=== PATIENT | female | born 1955 | race Caucasian/White ===

== ENCOUNTER 2017-02-26 13:00 | Inpatient (IN) | payer OTHER ==
[~2017-02-26] VITALS: Ht 165.1 cm; Wt 98.5 kg
--- NOTE | ~2017-02-26 | OR ---
PATIENT'S NAME: ANA SAUER [facility] AGE: 61 Y [address] ROOM: [place] [address] LOCATION: [facility] ADMIT DATE: 03/03/2017 OR/Procedure Report DISCHARGE DATE: FAMILY PHYSICIAN: Pernell Crowell MD ATTENDING PHYSICIAN: REN MILLER SURGEON: Ren Miller MD FABRICATION MACHINE OPERATOR: 1. Angel Mcdowell CST/FAYE. 2. Ren Jeffrey. DATE OF PROCEDURE: 03/03/2017 PRE-OP DIAGNOSIS: Degenerative joint disease left knee. POST-OP DIAGNOSIS: Degenerative joint disease left knee. OPERATION: Left total knee arthroplasty with computer navigation. ANESTHESIA: Spinal anesthesia plus adductor canal block plus periarticular local anesthesia (ropivacaine with epinephrine and Toradol). ESTIMATED BLOOD LOSS: Less than 10 mL. DRAIN: None. SPECIMEN: None. COMPLICATIONS: None. IMPLANT SYSTEM: Endosense Triathlon. Size 4 left posterior stabilized femoral component. Size 3 universal modular tibial baseplate. An 11 mm posterior stabilized size 3, X3 tibial polyethylene insert. 32 mm oval X3 patella component (triple pegged). INDICATIONS FOR SURGERY: Ana is a 61-year-old female who presents with advanced left knee degenerative joint disease and associated severely compromised activities of daily living. The patient has decided to proceed with knee replacement after having been thoroughly counseled regarding the associated risks, benefits, and limitations. We have specifically reviewed the risks and implications of infection, deep venous thrombosis, pulmonary embolism, mortality, neurovascular complications, blood transfusion (and associated potential for disease transmission or transfusion reaction), stiffness, instability, mechanical deterioration of the components (due to wear and or loosening), and the potential need for revision. We have also emphasized the importance of active involvement and compliance with post- operative physical therapy as a means of optimizing range of motion and PATIENT'S NAME: ANA SAUER [facility] AGE: 61 Y [address] ROOM: [place] [address] LOCATION: [facility] ADMIT DATE: 03/03/2017 OR/Procedure Report DISCHARGE DATE: FAMILY PHYSICIAN: Pernell Crowell MD ATTENDING PHYSICIAN: REN MILLER functional recovery. Informed consent has been granted. DESCRIPTION OF PROCEDURE: The patient was positioned supine after administration of anesthesia and prophylactic antibiotics. A well-padded pneumatic tourniquet was placed around the left proximal thigh, and the left lower extremity was prepped and draped with vigilant sterile technique. The patient's name as well as the intended operative side and procedure were confirmed with a verbal time-out involving myself, the circulating nurse, the scrub nurse, and the anesthesiologist. Examination under anesthesia demonstrated a moderate effusion. There were no active skin lesions or masses. There was no erythema. There was no abnormal warmth. Range of motion was under anesthesia was from a 10-degree flexion contracture to 125 degrees of flexion. There was no ligamentous insufficiency. The left lower extremity was elevated and exsanguinated with an Esmarch wrap, and the pneumatic tourniquet was inflated to 300mmHg. The knee was approached through a longitudinal midline incision. A medial parapatellar arthrotomy was performed and the patella was everted. Examination of the joint space demonstrated a moderate amount of benign-appearing translucent synovial fluid. The cruciate ligaments were intact. There was mild generalized non- proliferative synovitis. There was a small osteophyte at the intercondylar notch. There was full-thickness loss of articular cartilage involving 90% of the patella. There was a 2 x 4 cm osteophyte at the lateral margin of the patella. There were small osteophytes at the superior and inferior margins of the patella. There was an additional 1 cm partially mobile ossicle at the superolateral margin of the patella. There were large osteophytes at the medial and lateral margins of the femoral trochlea as well as at the medial femoral condyle. There was a 1 x 2 cm region of full-thickness articular cartilage loss at the medial aspect of the medial femoral condyle with extensive surrounding high-grade partial-thickness articular cartilage loss at the medial femoral condyle. There was a moderate-sized osteophyte at the medial tibial plateau. There was a 1.5 cm osteophyte at the medial margin of the medial tibial plateau. There was a 1 cm osteophyte at the central aspect of the lateral femoral condyle and a second 1 cm region of full-thickness articular cartilage loss at the anteromedial aspect of the lateral femoral condyle. There were mild grade 3 degenerative changes at the medial aspect of the lateral tibial plateau. There was mild inner perimeter tearing of remnant of the medial meniscus. Remnants of the menisci and cruciate ligaments were excised. The GrabInbox computer navigation femoral tracker was pinned in place at the distal aspect of the femoral trochlea. Absence of motion between the femur and the tracking PATIENT'S NAME: ANA SAUER [facility] AGE: 61 Y [address] ROOM: [address] [place] [id number] LOCATION: [facility] ADMIT DATE: 03/03/2017 OR/Procedure Report DISCHARGE DATE: FAMILY PHYSICIAN: Pernell Crowell MD ATTENDING PHYSICIAN: REN MILLER device was confirmed manually and visually. Femoral osseous landmarks were obtained in order to calibrate the computer navigation system. Landmarks included the center of rotation of the ipsilateral hip, the center-point of the distal femur, the femoral AP axis, 57 points on the medial femoral condyle articular surface, and 57 points on the lateral femoral condyle articular surface. The GrabInbox computer navigation system was subsequently utilized to position the distal femoral resection block such that the distal femoral resection was performed perfectly perpendicular to the femoral mechanical axis. The distal femoral resection was performed with a Cinema One oscillating saw. The GrabInbox computer navigation tibial tracker was pinned in place at the anterior aspect of the tibial plateau. Absence of motion between the tibia and the tracking device was confirmed manually and visually. Tibial osseous landmarks were obtained in order to calibrate the computer navigation system. Landmarks included the center-point of the tibial plateau, the AP tibial axis, 57 points on the medial tibial plateau articular surface, 57 points on the lateral tibial plateau articular surface, the medial malleolus, and the lateral malleolus. The GrabInbox computer navigation system was subsequently utilized to position the proximal tibial resection block such that the proximal tibial resection was performed perfectly perpendicular to the tibial mechanical axis. The proximal tibial resection was performed with a Endosense Precision oscillating saw. Perpendicularity of the tibial resection with respect to the tibial shaft axis was reconfirmed by inserting a spacer- block attached to an extramedullary guide magda. External rotation of the anterior and posterior femoral resections was set parallel to the epicondylar axis and carefully adjusted in order to create a rectangular flexion gap. The box resection was performed with a reciprocating saw. Anterior and posterior chamfer resections were performed with the oscillating saw. Posterior condyle osteophytes were excised with an osteotome. All other osteophytes were excised with a rongeur. Resection of all remnants of the menisci was reconfirmed. Flexion and extension gaps were confirmed to be symmetric and well balanced with a spacer-block technique. The patella resection was performed with an oscillating saw such that the composite thickness of the reconstructed patella was equivalent to the thickness of the seminole patella. Patella tracking was confirmed to be optimal. Patella tracking was optimal, and there was no need for a lateral retinacular release. All trial components were removed and all prepared osseous surfaces were thoroughly irrigated with pulsatile saline lavage and dried prior to cementing all three components in a single stage using Endosense Simplex cement containing pre-mixed tobramycin. All extruded excess cement was removed. The entire PATIENT'S NAME: ANA SAUER [facility] AGE: 61 Y [address] ROOM: [address] [address] LOCATION: [facility] ADMIT DATE: 03/03/2017 OR/Procedure Report DISCHARGE DATE: FAMILY PHYSICIAN: Pernell Crowell MD ATTENDING PHYSICIAN: REN MILLER joint space was thoroughly inspected and thoroughly irrigated with bacteriostatic pulsatile saline lavage to assure that there was no residual debris of any sort. Final range of motion was from a full extension (with no passive hyperextension) to 130 degrees of flexion. Patella tracking was reconfirmed to be optimal. There was very good anteroposterior stability at 90 degrees of flexion. There was less than 1 mm of medial lift-off to valgus stress in full extension. There was 1 mm of lateral lift-off to varus stress in full extension. The arthrotomy was closed with multiple simple and [id number] interrupted #1 Vicryl. Subcutaneous tissues were thoroughly re-irrigated with bacteriostatic pulsatile saline lavage. Subcutaneous tissues were re- approximated with simple buried interrupted #0 Vicryl sutures. The skin was closed with simple buried interrupted 2-0 Vicryl sutures followed by surgical alicia. The dressing consisted of Xeroform gauze, 4x4 gauze, ABD pads and two 6-inch Darron Wraps. There were no intra-operative complications. MD ALEX DEWEY/elizabeth /[id number] d: 03/03/17 2145 t: 03/11/17 0716, OPERATIVE SUMMARY
[2017-02-26] MEDS ORDERED: TOPROL XL 5050 MG PO (13:37)
[2017-02-26] MEDS ORDERED: CRESTOR20 MG PO (13:37)
[2017-02-26] MEDS ORDERED: OMEPRAZOLE40 MG PO (13:37)
[2017-02-26] MEDS ORDERED: ZESTORETIC 10-1 EACH PO (13:37)
[2017-02-26] MEDS ORDERED: VITAMIN C1000 MG PO (13:38)
[2017-02-26] MEDS ORDERED: ASPIRIN EC81 MG PO (13:38)
[2017-02-26] MEDS ORDERED: CALCIUM + VITA1 EACH PO (13:39)
[2017-02-26] MEDS ORDERED: ALEVE220 MG PO (13:40)
[2017-02-26] MEDS ORDERED: WOMEN'S DAILY1 EACH PO (13:40)
[2017-03-03] MEDS ORDERED: ACETAMINOPHEN500 M1 PO (06:09)
[2017-03-04] MEDS ORDERED: COLACE100 MG PO (15:35)
[2017-03-04] MEDS ORDERED: NEURONTIN300 MG PO (15:36)
[2017-03-04] MEDS ORDERED: MIRALAX17 GM PO (15:38)
[2017-03-04] MEDS ORDERED: DILAUDID 2MG(HYD2 MG PO (15:42)
[2017-03-04] MEDS ORDERED: CELEBREX200 MG PO (15:43)
[2017-03-04] MEDS ORDERED: VALIUM5 MG PO (15:45)
== END 2017-03-04 17:46 | disposition disaster alternative care site (69) | DRG 470 ==
LOC: G3N 03-03 05:05
PROVIDERS: ADMIT Orthopaedic Surgery
PROC: 0SRD0J9 Replacement of Left Knee Joint with Synthetic Substitute, Cemented, Open Approach (ICD-10-PCS; principal; 2017-03-03)
DX: M17.0 Bilateral primary osteoarthritis of knee (principal); I10 Essential (primary) hypertension; E78.1 Pure hyperglyceridemia; E66.9 Obesity, unspecified; E55.9 Vitamin D deficiency, unspecified; K21.9 Gastro-esophageal reflux disease without esophagitis; Z79.1 Long term (current) use of non-steroidal anti-inflammatories (NSAID); Z68.36 Body mass index [BMI] 36.0-36.9, adult; Z79.82 Long term (current) use of aspirin
CPT/HCPCS: C1713; C1776; J0690; J1100; J1885; J2001; J2250; J2795; J7120

== ENCOUNTER → 2017-02-27 | Outpatient (CLI) | payer OTHER ==
[~2017-02-27] MED LIST: ACETAMINOPHEN500 M1 PO; ALEVE220 MG PO; AMOXICILLIN500 M1 PO; ASPIRIN EC81 MG PO; CALCIUM + VITA1 EACH PO; CELEBREX200 MG PO; COLACE100 MG PO; CRESTOR20 MG PO; DILAUDID 2MG(HYD2 MG PO; GABAPENTIN300 MG PO; IBUPROFEN800 MG PO; MIRALAX17 GM PO; NEURONTIN300 MG PO; OMEPRAZOLE40 MG PO; TOPROL XL 5050 MG PO; VALIUM5 MG PO; VITAMIN C1000 MG PO; WOMEN'S DAILY1 EACH PO; XARELTO10 MG PO; ZESTORETIC 10-1 EACH PO
[2017-02-27 10:51] LABS: BILIRUBIN URINE NEGATIVE (NEGATIVE); BLOOD URINE NEGATIVE /UL (NEGATIVE); COLOR URINE YELLOW (YELLOW); GLUCOSE URINE NEGATIVE (NEGATIVE); KETONE URINE NEGATIVE (NEGATIVE); LEUKOCYTES URINE NEGATIVE /UL (NEGATIVE); NITRITE URINE NEGATIVE (NEGATIVE); PROTEIN URINE NEGATIVE (NEGATIVE); SPEC GRAVITY URINE 1.015 (1.003-1.035); TURBIDITY URINE CLEAR (CLEAR); UROBILINOGEN URINE NORMAL (NORMAL)
== END | disposition disaster alternative care site (69) ==
LOC: GNJRC 10:08
PROVIDERS: Orthopaedic Surgery
DX: Z01.812 Encounter for preprocedural laboratory examination (principal); M17.12 Unilateral primary osteoarthritis, left knee

== ENCOUNTER 2017-06-09 10:00 | Inpatient (IN) | payer OTHER ==
[~2017-06-09] VITALS: Ht 165.1 cm; Wt 91.9 kg
--- NOTE | ~2017-06-09 | OR ---
PATIENT'S NAME: ANA GONZALEZ [facility] AGE: 61 Y [address] ROOM: [place] [address] LOCATION: [facility] ADMIT DATE: 06/16/2017 OR/Procedure Report DISCHARGE DATE: FAMILY PHYSICIAN: LUIS FERNANDO BA PA-C ATTENDING PHYSICIAN: REN MILLER SURGEON: Ren Miller MD SADDLE STITCHER: 1. JULIAN Mcrae. 2. Angel Mcdowell CST/TENSION MACHINE OPERATOR. DATE OF PROCEDURE: 06/16/2017 PREOPERATIVE DIAGNOSIS: Primary osteoarthritis, right knee. POSTOPERATIVE DIAGNOSIS: Primary osteoarthritis, right knee. OPERATION: Right total knee arthroplasty with computer navigation. ANESTHESIA: General endotracheal anesthesia plus adductor canal block plus periarticular local anesthesia (ropivacaine with epinephrine and Toradol). ESTIMATED BLOOD LOSS: Less than 10 mL. DRAIN: None. SPECIMEN: None. COMPLICATIONS: None. IMPLANT SYSTEM: Gino Triathlon. 1. Size 4 right posterior stabilized femoral component. 2. Size 3 universal modular tibial baseplate. 3. An 11 mm posterior stabilized size 3 X3 tibial polyethylene insert. 4. A 32 mm diameter X3 patellar component. INDICATIONS FOR SURGERY: Ana Gonzalez is a 61-year-old female who presents with advanced right knee degenerative joint disease and associated severely compromised activities of daily living. The patient has decided to proceed with knee replacement after having been thoroughly counseled regarding the associated risks, benefits, and limitations. We have specifically reviewed the risks and implications of infection, deep venous thrombosis, pulmonary embolism, mortality, neurovascular complications, blood transfusion (and associated potential for disease transmission or transfusion reaction), stiffness, instability, mechanical deterioration of the components (due to wear and or loosening), and the potential need for revision. We have also emphasized the importance of active involvement and compliance with post- operative physical therapy as a means of optimizing range of motion and PATIENT'S NAME: ANA GONZALEZ [facility] AGE: 61 Y [address] ROOM: [place] [address] LOCATION: [facility] ADMIT DATE: 06/16/2017 OR/Procedure Report DISCHARGE DATE: FAMILY PHYSICIAN: LUIS FERNANDO BA PA-C ATTENDING PHYSICIAN: REN MILLER functional recovery. Informed consent has been granted. DESCRIPTION OF PROCEDURE: The patient was positioned supine after administration of anesthesia and prophylactic antibiotics. A well-padded pneumatic tourniquet was placed around the right proximal thigh, and the right lower extremity was prepped and draped with vigilant sterile technique. The patient's name as well as the intended operative side and procedure were confirmed with a verbal time-out involving myself, the circulating nurse, the scrub nurse, and the anesthesiologist. Examination under anesthesia demonstrated no active skin lesions or masses. There were well-healed medial and lateral arthroscopy portal scars. There was no erythema. There was no abnormal warmth. There was a moderate effusion. Range of motion under anesthesia was from a 6-degree flexion contracture to 125 degrees of flexion. There was no ligamentous insufficiency. The right lower extremity was elevated and exsanguinated with an Esmarch wrap, and the pneumatic tourniquet was inflated to 300mmHg. The knee was approached through a longitudinal midline incision. A medial parapatellar arthrotomy was performed and the patella was everted. Examination of the joint space demonstrated a large amount of benign-appearing translucent orange-colored synovial fluid. There were no loose bodies. Cruciate ligaments were intact. There were small osteophytes at the intercondylar notch. There were large osteophytes around the circumference of the patella as well as the medial and lateral margins of the femoral trochlea. There were intermixed grade 3 and grade 4 degenerative changes across the equator of the patella. There was full-thickness loss of articular cartilage involving over 50% of the central and medial portions of the femoral trochlea. There was full-thickness loss of articular cartilage involving 90% of the medial femoral condyle. There was a large osteophyte at the medial femoral condyle. There was a small osteophyte at the medial tibial plateau. There was a small osteophyte at the lateral femoral condyle. There was a very small osteophyte at the lateral tibial plateau. There was a 3 x 10 mm region of full-thickness articular cartilage loss at the central aspect of the lateral tibial plateau. There were grade 2 degenerative changes at the lateral femoral condyle. The medial meniscus was truncated. There was mild inner perimeter tearing at the remnant of the medial meniscus. There was mild inner perimeter tearing at the lateral meniscus, but the majority of the lateral meniscus was intact. Remnants of the menisci and cruciate ligaments were excised. The Gino ASM computer navigation femoral tracker was pinned in place at the distal aspect of the femoral trochlea. Absence of motion between the femur and the tracking device was confirmed manually and visually. Femoral osseous landmarks were obtained in order to calibrate the computer navigation system. Landmarks PATIENT'S NAME: ANA GONZALEZ [facility] AGE: 61 Y [address] ROOM: [place] [address] LOCATION: [facility] ADMIT DATE: 06/16/2017 OR/Procedure Report DISCHARGE DATE: FAMILY PHYSICIAN: LUIS FERNANDO BA PA-C ATTENDING PHYSICIAN: REN MILLER included the center of rotation of the ipsilateral hip, the center-point of the distal femur, the femoral AP axis, 57 points on the medial femoral condyle articular surface, and 57 points on the lateral femoral condyle articular surface. The V[employer] computer navigation system was subsequently utilized to position the distal femoral resection block such that the distal femoral resection was performed perfectly perpendicular to the femoral mechanical axis. The distal femoral resection was performed with a Auspherix oscillating saw. The Voxeet computer navigation tibial tracker was pinned in place at the anterior aspect of the tibial plateau. Absence of motion between the tibia and the tracking device was confirmed manually and visually. Tibial osseous landmarks were obtained in order to calibrate the computer navigation system. Landmarks included the center-point of the tibial plateau, the AP tibial axis, 57 points on the medial tibial plateau articular surface, 57 points on the lateral tibial plateau articular surface, the medial malleolus, and the lateral malleolus. The Voxeet computer navigation system was subsequently utilized to position the proximal tibial resection block such that the proximal tibial resection was performed perfectly perpendicular to the tibial mechanical axis. The proximal tibial resection was performed with a [employer] Precision oscillating saw. Perpendicularity of the tibial resection with respect to the tibial shaft axis was reconfirmed by inserting a spacer- block attached to an extramedullary guide magda. External rotation of the anterior and posterior femoral resections was set parallel to the epicondylar axis and carefully adjusted in order to create a rectangular flexion gap. The box resection was performed with a reciprocating saw. Anterior and posterior chamfer resections were performed with the oscillating saw. Posterior condyle osteophytes were excised with an osteotome. All other osteophytes were excised with a rongeur. Resection of all remnants of the menisci was reconfirmed. Flexion and extension gaps were confirmed to be symmetric and well balanced with a spacer-block technique. The patella resection was performed with an oscillating saw such that the composite thickness of the reconstructed patella was equivalent to the thickness of the houlton patella. Patella tracking was confirmed to be optimal. A limited lateral retinacular release was performed to facilitate eversion of the patella. No additional lateral retinacular release was required to optimize patellar tracking. All trial components were removed and all prepared osseous surfaces were thoroughly irrigated with pulsatile saline lavage and dried prior to cementing all three components in a single stage using [employer] Simplex cement containing pre-mixed tobramycin. All extruded excess cement was removed. The entire joint space was thoroughly inspected and thoroughly irrigated with PATIENT'S NAME: ANA GONZALEZ [facility] AGE: 61 Y [address] ROOM: [address] [address] LOCATION: [facility] ADMIT DATE: 06/16/2017 OR/Procedure Report DISCHARGE DATE: FAMILY PHYSICIAN: LUIS FERNANDO BA PA-C ATTENDING PHYSICIAN: REN MILLER bacteriostatic pulsatile saline lavage to assure that there was no residual debris of any sort. Final range of motion was from full extension (with no passive hyperextension) to 130 degrees of flexion. Patella tracking was reconfirmed to be optimal. There was very good anteroposterior stability at 90 degrees of flexion. There was 0 mm of medial lift-off to valgus stress in full extension. There was 0 mm of lateral lift-off to varus stress in full extension. The arthrotomy was closed with multiple simple and [id number] interrupted #1 Vicryl. Subcutaneous tissues were thoroughly re-irrigated with bacteriostatic pulsatile saline lavage. Subcutaneous tissues were re- approximated with simple buried interrupted #0 Vicryl sutures. The skin was closed with simple buried interrupted 2-0 Vicryl sutures followed by surgical alicia. The dressing consisted of Xeroform gauze, 4x4 gauze, ABD pads and two 6-inch Darron Wraps. There were no intra-operative complications. It should be noted that the physician's marketing operations assistant played an active, integral role throughout this entire operation. By providing expert retraction, they greatly facilitated and expedited safe and effective exposure of the distal femur, proximal tibia and patella for preparation and implantation of the components. They were also actively involved in the patient's positioning, prepping and draping, as well as wound closure. MD ALEX DEWEY/elizabeth /[id number] d: 06/16/17 1215 t: 06/18/17 1745, OPERATIVE SUMMARY
[~2017-06-09 10:00] MED LIST changes: -AMOXICILLIN500 M1 PO; -GABAPENTIN300 MG PO; -IBUPROFEN800 MG PO; -XARELTO10 MG PO
[2017-06-09] MEDS ORDERED: AMOXICILLIN500 M1 PO (11:32)
[2017-06-09] MEDS ORDERED: IBUPROFEN800 MG PO (11:33)
--- NOTE | 2017-06-16 19:07 | NUR ---
Significant Event:Presents from PACU at 1150, VSS rates pain 1-5/10. Dilaudid 2mg po and scheduled Tylenol po for pain. Last dose of Dilaudid at 1700. Dsg is c/d/i. CSM is WNL. Tx to Chair/BSC with SBA 1, GB/Walker. Voids, ate well. Last BM 06/15. Routine vitals. Follow up:Monitor, pt wants to DC to home tomorrow.
--- NOTE | 2017-06-17 04:21 | NUR ---
Significant Event: Alert/oriented x3. Plans to go home today, not here until after 1800. VSS. CSM WNL. Tylenol ES at 2300 and 0500, no other pain meds. Dressing C/D/I. Bilateral foot pumps. EZ wrap. 1 assist ambulation. Voided per bathroom. Follow up:
[2017-06-17] MEDS ORDERED: CELEBREX200 MG PO (10:00)
[2017-06-17] MEDS ORDERED: DILAUDID 2MG(HYD2 MG PO ×2 (10:01→10:02)
[2017-06-17] MEDS ORDERED: XARELTO10 MG PO (10:03)
[2017-06-17] MEDS ORDERED: MIRALAX17 GM PO (10:04)
[2017-06-17] MEDS ORDERED: GABAPENTIN300 MG PO (10:05)
--- NOTE | 2017-06-17 15:30 | NUR ---
Met with patient and 06/16/17. Deny needs/concerns for anticipated discharge on the . Reports has DME from prior OR. Reviewed and encouraged use of IS. Will follow and assist as needs identified.
--- NOTE | 2017-06-17 19:38 | NUR ---
1700: Pt reviewed DC notes. States she understands her instructions regarding management/care of R knee, follow up appointments with Dr. Preciado and PCP. Pt is able to take/record her blood pressures, since she did with previous surgery. Pt had pain pill prior to DC per her request. DC to home with spouse in stable condition.
== END 2017-06-17 17:10 | disposition disaster alternative care site (69) | DRG 470 ==
LOC: G3N 06-16 06:10
PROVIDERS: ADMIT Orthopaedic Surgery
PROC: XR2G021 Monitoring of Right Knee Joint using Intraoperative Knee Replacement Sensor, Open Approach, New Technology Group 1 (ICD-10-PCS; principal; 2017-06-16)
PROC: 0SRC0J9 Replacement of Right Knee Joint with Synthetic Substitute, Cemented, Open Approach (ICD-10-PCS; principal; 2017-06-16)
DX: M17.11 Unilateral primary osteoarthritis, right knee (principal); I10 Essential (primary) hypertension; E78.1 Pure hyperglyceridemia; E55.9 Vitamin D deficiency, unspecified
CPT/HCPCS: C1713; C1776; J0690; J1100; J1885; J2001; J2250; J2405; J2550; J2795; J7120